=== PATIENT | female | born 1960 | race Hispanic/Latino ===

== ENCOUNTER 2022-08-06 11:33 | Observation (INO) | payer OTHER, MEDICARE ==
[~2022-08-06] VITALS: Ht 162.6 cm; Wt 65.3 kg
[2022-08-06] VITALS (7 sets, daily range): BP systolic 138–166; BP diastolic 49–64
[2022-08-06] MEDS ORDERED: HEPARIN 25,000 UNITS/250ML D5W 250 ML IV SCH (12:00)
[2022-08-06] MEDS ORDERED: MIDAZOLAM HCL 1 MG/ML 2ML VIAL ONE (12:23)
[2022-08-06] MEDS ORDERED: LIDOCAINE HCL 1% MDV 50ML VIAL ONE (12:23)
[2022-08-06] MEDS ORDERED: BIVALIRUDIN 250 MG/VIAL IV ONE (12:23)
[2022-08-06] MEDS ORDERED: FENTANYL CITRATE PF 50 MCG/1 ML 2ML VIAL ONE (12:23)
[2022-08-06] MEDS ORDERED: NITROGLYCERIN 50MG VIAL ONE (12:23)
[2022-08-06] MEDS ORDERED: ISOVUE-370 50ML VIAL IV ONE (12:23)
[2022-08-06] MEDS ORDERED: IOHEXOL 350 MG/ML 100ML INFUS..BTL IV ONE (12:23)
[2022-08-06 12:27] LABS: BASOPHILS % (AUTO) 0.6 % (0.0-5.0); EOSINOPHILS % (AUTO) 1.6 % (0.0-8.0); HEMATOCRIT 28.8 % (36-48); LYMPHOCYTES % (AUTO) 5.1 % (21.0-51.0); MEAN CORPUSCULAR HEMOGLOBIN 32.5 pg (27.0-33.0); MEAN CORPUSCULAR HGB CONC 32.3 g/dL (32.0-36.0); MEAN CORPUSCULAR VOLUME 100.7 fL (79-99); MONOCYTES % (AUTO) 7.3 % (3.0-13.0); NEUTROPHILS % (AUTO) 83.5 % (40.0-77.0); PLATELET COUNT (AUTO) 322 K/uL (130-400); RED BLOOD CELL COUNT(AUTO) 2.86 MIL/uL (4.00-5.50); RED CELL DISTRIBUTION WIDTH 14.1 % (11.0-15.5); WHITE BLOOD COUNT (AUTO) 17.7 K/uL (4.8-10.8)
[2022-08-06 12:35] LABS: INR 1.15 (0.85-1.15); PROTHROMBIN TIME 12.4 SEC (9.6-11.6)
[2022-08-06 12:37] LABS: POTASSIUM 4.3 mmol/L (3.5-5.1)
[2022-08-06 12:40] LABS: CREATININE 8.7 mg/dL (0.5-1.5)
[2022-08-06 12:48] LABS: THYROID STIMULATING HORMONE 83.01 uIU/mL (0.36-3.74); TOTAL PROTEIN, SERUM 6.9 g/dL (6.0-8.3)
[2022-08-06 12:57] LABS: HEMOGLOBIN A1C 5.7 % (4.0-6.0)
[2022-08-06] MEDS ORDERED: ZOSYN 3.375GM +NS 50ML IVPB SCH (13:00)
[2022-08-06] MEDS ORDERED: VANCOMYCIN 1G/250ML KIT 250 ML IV SCH (13:00)
[2022-08-06] MEDS ORDERED: VANCOMYCIN PROTOCOL PER PHARMACY IV SCH (13:00)
[2022-08-06 13:26] LABS: PARTIAL THROMBOPLASTIN TIME 113.3 SEC (26.3-35.5)
[2022-08-06] MEDS ORDERED: IOHEXOL-350 50ML VIAL IV ONE (14:05)
[2022-08-06] MEDS ORDERED: 0.9%NACL 10ML VIAL IVP SCH (15:00)
[2022-08-06] MEDS ORDERED: DEXTROSE 50%-WATER 50 ML DISP.SYRIN IV PRN (15:00)
[2022-08-06] MEDS: INSULIN HUMULIN R 100 UNIT/ML 3ML SQ SCH (16:30)
[2022-08-06] MEDS: ACETAMINOPHEN 325 MG TAB PO ONE (17:23)
[2022-08-06] MEDS: ACETAMINOPHEN 325 MG TAB ONE (17:57)
[2022-08-07] MEDS ORDERED: ASPIRIN 81MG CHEW TAB PO SCH (09:00)
== END 2022-08-06 17:30 | disposition short-term general hospital (02) ==
LOC: EDH 11:33 → EDSTATUS 11:33 → INTOOBSV 11:34 → EDHIP 11:34
PROVIDERS: ADMIT Internal Medicine; ATTEND Internal Medicine
DX: I21.A1 Myocardial infarction type 2 (principal); L03.032 Cellulitis of left toe; E11.52 Type 2 diabetes mellitus with diabetic peripheral angiopathy with gangrene; I96 Gangrene, not elsewhere classified; I12.0 Hypertensive chronic kidney disease with stage 5 chronic kidney disease or end stage renal disease; E11.22 Type 2 diabetes mellitus with diabetic chronic kidney disease; N18.6 End stage renal disease; D72.829 Elevated white blood cell count, unspecified; I48.91 Unspecified atrial fibrillation; I25.10 Atherosclerotic heart disease of native coronary artery without angina pectoris; E78.5 Hyperlipidemia, unspecified; I25.2 Old myocardial infarction; E03.9 Hypothyroidism, unspecified; Z79.01 Long term (current) use of anticoagulants; Z79.899 Other long term (current) drug therapy; Z99.2 Dependence on renal dialysis
CPT/HCPCS: 93459; 99284; 83036; 84443; 84484; 80053; 85025; 85610; 85730; 82948; 84439; 84481; 36415; 93005; C1769; C1894 ×2; C1760 ×2; G0378; Q9967 ×3; J3010; J1644; J3490 ×2; Q9965; 99156; 99157; J0583; J2250